=== PATIENT | male | born 1975 | race Caucasian/White ===

== ENCOUNTER 2017-06-29 17:43 | Emergency (ER) | payer OTHER ==
[2017-06-29] MEDS ORDERED: Adacel Vial IM ONE ×2 (18:24→18:47)
[2017-06-29] MEDS ORDERED: DILAUDID 2 MG INJECTION IV ONE (19:27)
[2017-06-29] MEDS ORDERED: GARAMYCIN INJ ONE (19:37)
[2017-06-29] MEDS ORDERED: DILAUDID 2 MG INJECTION ONE (19:38)
[2017-06-29] MEDS ORDERED: GARAMYCIN INJ IJ ONE (19:44)
--- NOTE | 2017-06-29 19:45 | ERPHSYRPT ---
- History of Present Illness Time Seen by Provider: 06/29/17 19:10 Source: patient Exam Limitations: no limitations Patient Subjective Stated Complaint: sharpening knife and cut right index finger Triage Nursing Assessment: pt alert and orietnedx3, gait steady ambualtes by self, has a 5 cm laceration to right index finger, has feeling in finger and is able to move lower half of finger. cap refill immediate, radial pulse present, no other injuries noted Physician History: 42 y/o male comes to the ER after slicing his right index finger with a knife while cutting deer. In the ER, patient reports having increasing pain at the laceration site with numbness up the arm. The patient describes the pain as a 8/ 10, sharp, constant and pt has not taken any pain meds. Pt arrives with a 1 cm laceration in the middle of the ventral side of the right index finger. Bleeding is controlled but there appears to be tendon involvement. Pt is not up to date with her tetanus shot. Occurred: just prior to arrival Method of Injury: other (cut with knife) Quality: constant Severity of Pain-Max: severe Severity of Pain-Current: severe Extremities Pain Location: 2nd finger: right Modifying Factors: Improves With: nothing Associated Symptoms: none Allergies/Adverse Reactions: meperidine HCl [From Demerol] Allergy (Severe, Verified 06/24/13 19:39) morphine Allergy (Severe, Verified 06/24/13 19:39) nalbuphine HCl [From Nubain] Allergy (Severe, Verified 06/24/13 19:39) Hx Tetanus, Diphtheria Vaccination/Date Given: No Hx Influenza Vaccination/Date Given: No Hx Pneumococcal Vaccination/Date Given: No Immunizations Up to Date: No - Review of Systems Constitutional: No Fever, No Chills Eyes: No Symptoms Ears, Nose, & Throat: No Symptoms Respiratory: No Cough, No Dyspnea Cardiac: No Chest Pain, No Edema, No Syncope Abdominal/Gastrointestinal: No Abdominal Pain, No Nausea, No Vomiting, No Diarrhea Genitourinary Symptoms: No Dysuria Musculoskeletal: Joint Pain, Myalgias, No Back Pain, No Neck Pain Skin: No Rash Neurological: Parasthesia, No Dizziness, No Focal Weakness, No Sensory Changes Psychological: No Symptoms Endocrine: No Symptoms All Other Systems: Reviewed and Negative - Past Medical History Pertinent Past Medical History: No Neurological History: No Pertinent History Cardiac History: No Pertinent History Respiratory History: No Pertinent History Psycho-Social History: Anxiety, Depression - Past Surgical History Past Surgical History: Yes Gastrointestinal: Hernia Repair Musculoskeletal: Orthopedic Surgery Other Surgical History: clavical and arm,Noted severe allies to morphine Demerol and nalbuphine for postop surgical analgesia with severe reaction hives swelling etc. - Social History Smoking Status: Light tobacco smoker Exposure to second hand smoke: Yes Drug Use: none Patient Lives Alone: No Significant Family History: diabetes - Nursing Vital Signs Nursing Vital Signs: Initial Vital Signs Temperature 98.5 F 06/29/17 17:44 Pulse Rate 78 06/29/17 17:44 Respiratory Rate 20 06/29/17 17:44 Blood Pressure 139/97 06/29/17 17:44 O2 Sat by Pulse Oximetry 98 06/29/17 17:44 Pain Scale Pain Intensity 5 - Physical Exam General Appearance: alert Eyes, Ears, Nose, Throat Exam: moist mucous membranes Neck Exam: non-tender, supple Cardiovascular/Respiratory Exam: chest non-tender, normal breath sounds, regular rate/rhythm, no respiratory distress Abdominal Exam: non-tender, No guarding Back Exam: normal inspection, No vertebral tenderness Shoulder Exam: normal inspection, non-tender, no evidence of injury Elbow/Forearm Exam: normal inspection, non-tender, no evidence of injury Wrist Exam: normal inspection, non-tender, no evidence of injury Hand Exam: ecchymosis, laceration, swelling Neuro/Tendon Exam: normal sensation, normal motor functions, tendon function deficit (delayed capillary refill of 4 sec), tendon injury visualized, No normal tendon functions Mental Status Exam: alert, oriented x 3, cooperative Skin Exam: normal color, warm, dry SpO2: 97 Oxygen Delivery: Room Air - Course Nursing assessment & vital signs reviewed: Yes Ordered Tests: Active Orders 24 hr Category Date Time Status IV Insertion STAT Care 06/29/17 19:34 Active Medication Summary Discontinued Medications Generic Name Dose Route Start Last Admin Trade Name Freq PRN Reason Stop Dose Admin Diphtheria/Tetanus/Acell Pertussis 0.5 ml 06/29/17 18:24 06/29/17 18:49 Adacel Vial IM 06/29/17 18:25 0.5 ml .ONCE ONE Administration Diphtheria/Tetanus/Acell Pertussis Confirm 06/29/17 18:47 Adacel Vial Administered 06/29/17 18:48 Dose 0.5 ml IM .STK-MED ONE Hydromorphone HCl 1 mg 06/29/17 19:27 Dilaudid 2 Mg Injection IV 06/29/17 19:28 ONCE ONE - Progress Progress: unchanged Progress Note: 06/29/17 19:[address] New, hand surgeon at [facility] who wants the wound irrigated with saline and gentamycin and to be transferred to [facility] to the ER. Pt has been accepted by ER physician, Dr Mart for finger laceration. - Departure Time of Disposition: 19:45 Departure Disposition: Transfer Clinical Impression: Finger laceration involving tendon Qualifiers: Encounter type: initial encounter Qualified Code(s): S61.219A - Laceration without foreign body of unspecified finger without damage to nail, initial encounter; S66.929A - Laceration of unspecified muscle, fascia and tendon at wrist and hand level, unspecified hand, initial encounter; S66.929A - Laceration of unspecified muscle, fascia and tendon at wrist and hand level, unspecified hand, initial encounter Condition: Fair Critical Care Time: Yes Critical Care Time(excluding separately billable procedures): 30-74 minutes Referrals: VEENA BANKS [Primary Care Provider] -
[2017-06-29 20:03] VITALS: BP 130/89; PULSE 72; O2SAT 96
== END 2017-06-29 20:51 | disposition short-term general hospital (02) ==
LOC: ED 17:43
DX: S66.921A Laceration of unspecified muscle, fascia and tendon at wrist and hand level, right hand, initial encounter (principal); W26.0XXA Contact with knife, initial encounter; Y93.9 Activity, unspecified
CPT/HCPCS: 36000; 90471; 90715; 96372; 96374; 99285; J1170; J1580

== ENCOUNTER 2018-06-15 21:38 | Emergency (ER) | payer OTHER ==
[2018-06-15] MEDS ORDERED: DUONEB 0.5-3 MG/3 ml Neb IH ONE ×2 (22:10→22:18)
--- NOTE | 2018-06-15 22:15 | ERPHSYRPT ---
- History of Present Illness Time Seen by Provider: 06/15/18 22:06 Source: patient Exam Limitations: no limitations Patient Subjective Stated Complaint: pt states for the past year he has been having trouble with his breathing. states its worse tonight and he feels like he cant get a deep breath and not able to let it all the way out. states he has pain with deep breath. Triage Nursing Assessment: pt alert and oriented, answers questions pprop. able to speak in complete sentences with no shortness of breath noted. lungs cta. skin pink warm and dry. 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 No nausea no vomiting no cough. Past medical history includes anxiety, depression Past surgical history includes hernia repair, clavicle and arm surgery Social history positive tobacco positive occasional alcohol negative drug use Timing/Duration: other (symptoms off and on for worse for the past 2-3 days) Severity: moderate Modifying Factors: Improves With: nothing Associated Symptoms: shortness of breath, chest pain (chest pain 2 days ago), No nausea, No vomiting, No abdominal pain, No heartburn, No diaphoresis, No cough, No chills, No fever, No headaches, No loss of appetite, No malaise, No rash, No syncope, No seizure, No weakness Allergies/Adverse Reactions: meperidine HCl [From Demerol] Allergy (Severe, Verified 06/15/18 22:02) morphine Allergy (Severe, Verified 06/15/18 22:02) nalbuphine HCl [From Nubain] Allergy (Severe, Verified 06/15/18 22:02) Home Medications: Alprazolam [Xanax] 0.5 mg PO Q6HPRN PRN 06/15/18 [History] Cyclobenzaprine HCl [Flexeril] 5 mg PO Q8H PRN PRN 06/15/18 [History] Hx Tetanus, Diphtheria Vaccination/Date Given: Yes Hx Influenza Vaccination/Date Given: No Hx Pneumococcal Vaccination/Date Given: No Immunizations Up to Date: Yes - Review of Systems Constitutional: No Fever, No Chills Eyes: No Symptoms Ears, Nose, & Throat: No Symptoms Respiratory: Dyspnea Cardiac: Chest Pain (chest pain 2 days ago), No Edema, No Syncope Abdominal/Gastrointestinal: No Abdominal Pain, No Nausea, No Vomiting, No Diarrhea Genitourinary Symptoms: No Dysuria Musculoskeletal: No Back Pain, No Neck Pain Skin: No Rash Neurological: No Dizziness, No Focal Weakness, No Sensory Changes Psychological: No Symptoms Endocrine: No Symptoms All Other Systems: Reviewed and Negative - Past Medical History Pertinent Past Medical History: No Neurological History: No Pertinent History Cardiac History: No Pertinent History Respiratory History: No Pertinent History Psycho-Social History: Anxiety, Depression - Past Surgical History Past Surgical History: Yes Gastrointestinal: Hernia Repair Musculoskeletal: Orthopedic Surgery Other Surgical History: clavical and arm,Noted severe allies to morphine Demerol and nalbuphine for postop surgical analgesia with severe reaction hives swelling etc. - Social History Smoking Status: Current some day smoker How long have you smoked: 5 yrs Exposure to second hand smoke: Yes Drug Use: none Patient Lives Alone: No Significant Family History: diabetes - Nursing Vital Signs Nursing Vital Signs: Initial Vital Signs Temperature 97.8 F 06/15/18 21:50 Pulse Rate 94 H 06/15/18 21:50 Respiratory Rate 18 06/15/18 21:50 Blood Pressure 148/89 06/15/18 21:50 O2 Sat by Pulse Oximetry 94 L 06/15/18 21:50 Pain Scale Pain Intensity 0 - Physical Exam General Appearance: no apparent distress, alert Eye Exam: PERRL/EOMI, eyes nml inspection Ears, Nose, Throat Exam: normal ENT inspection, TMs normal, pharynx normal, moist mucous membranes Neck Exam: normal inspection, non-tender, supple, full range of motion Respiratory Exam: normal breath sounds, lungs clear, No respiratory distress Cardiovascular Exam: regular rate/rhythm, normal heart sounds, normal peripheral pulses, capillary refill <2 sec Gastrointestinal/Abdomen Exam: soft, normal bowel sounds, No tenderness, No mass Back Exam: normal inspection, normal range of motion, No CVA tenderness, No vertebral tenderness Extremity Exam: normal inspection, normal range of motion, pelvis stable Neurologic Exam: alert, oriented x 3, cooperative, 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 Compared to December 28, 2012) - Radiology Exams Chest X-ray Interpretation: Interpreted by me (chest x-ray: No acute disease process noted) Ordered Tests: Active Orders 24 hr Category Date Time Status Can Feeder STAT Care 06/15/18 21:56 Active EKG-ER Only STAT Care 06/15/18 21:56 Active IV Insertion STAT Care 06/15/18 21:57 Active Oxygen-ED Only Nasal Cannula 2 lpm Care 06/15/18 21:57 Active Pulse Oximetry (ED) STAT Care 06/15/18 21:56 Active CHEST 1 VIEW (PORTABLE) Stat Exams 06/15/18 22:11 Taken CBC W DIFF Stat Lab 06/15/18 22:00 Completed CMP Stat Lab 06/15/18 22:00 Completed D-DIMER QUANTITATION Stat Lab 06/15/18 22:00 Completed NT PRO BNP Stat Lab 06/15/18 22:00 Completed TROPONIN Q3H Lab 06/15/18 22:00 Completed TROPONIN Q3H Lab 06/16/18 01:15 Ordered TROPONIN Q3H Lab 06/16/18 04:15 Ordered TROPONIN Q3H Lab 06/16/18 07:15 Ordered TROPONIN Q3H Lab 06/16/18 10:15 Ordered VENOUS BLOOD GAS Stat Lab 06/15/18 22:34 Completed Respiratory MDI STAT RT 06/15/18 23:08 Active Respiratory Therapy Assessment DAILY RT 06/15/18 22:21 Active Medication Summary Generic Name Dose Route Start Last Admin Trade Name Freq PRN Reason Stop Dose Admin Albuterol Sulfate 2 puff 06/15/18 23:07 Proventil Common Canister IH 07/15/18 23:06 Q4-6HPRN PRN shortness of breath, wheezing Discontinued Medications Generic Name Dose Route Start Last Admin Trade Name Freq PRN Reason Stop Dose Admin Albuterol/Ipratropium 3 ml 06/15/18 22:10 06/15/18 22:20 Duoneb 0.5-3 Mg/3 Ml Neb IH 06/15/18 22:11 3 ml STAT ONE Administration Albuterol/Ipratropium Confirm 06/15/18 22:18 Duoneb 0.5-3 Mg/3 Ml Neb Administered 06/15/18 22:19 Dose 3 ml IH .STK-MED ONE Methylprednisolone Sodium Succinate 125 mg 06/15/18 23:06 Solu-Medrol 125 Mg IV 06/15/18 23:07 STAT ONE Lab/Rad Data: Laboratory Result Diagrams 06/15/18 22:00 06/15/18 22:00 Laboratory Results 06/15/18 06/15/18 06/15/18 Range/Units 22:34 22:00 22:00 WBC (4.0-10.5) K/mm3 RBC (4.1-5.6) M/mm3 Hgb (12.5-18.0) gm/dl Hct (42-50) % MCV (78-100) fl MCH (26-32) pg MCHC (32-36) g/dl RDW (11.5-14.0) % Plt Count (150-450) K/mm3 MPV (6-9.5) fl Gran % (36.0-66.0) % Eos # (Auto) (0-0.5) Absolute Lymphs (auto) (1.0-4.6) Absolute Monos (auto) (0.0-1.3) Lymphocytes % (24.0-44.0) % Monocytes % (0.0-12.0) % Eosinophils % (0.00-5.0) % Basophils % (0.0-0.4) % Absolute Granulocytes (1.4-6.9) Basophils # (0-0.4) D-Dimer 311 (215-500) ng/mL pO2/FiO2 Ratio 28.0 % VBG pH 7.41 (7.32-7.42) VBG pCO2 at Pat Temp 43 (42-55) mm/Hg VBG pO2 at Pat Temp 83 H (25-40) mm/Hg VBG HCO3 27.3 (22-28) meq/L VBG O2 Sat (Jenny) 98.2 (95-100) VBG Base Excess 2.2 H (-2.0-2.0) VBG Hemoglobin 15.3 VBG Carboxyhemoglobin 4.1 (0.0-6.9) % T HGB POC Potassium 3.9 (3.5-5.1) Sodium (137-145) mmol/L Potassium (3.5-5.1) mmol/L Chloride (98-107) mmol/L Carbon Dioxide (22-30) mmol/L Anion Gap (5-15) MEQ/L BUN (9-20) mg/dL Creatinine (0.66-1.25) mg/dL Estimated GFR ML/MIN Glucose (74-106) mg/dL Calcium (8.4-10.2) mg/dL Total Bilirubin (0.2-1.3) mg/dL AST (17-59) U/L ALT (0-50) U/L Alkaline Phosphatase (38-126) U/L Troponin I < 0.012 (0.000-0.034) ng/mL NT-Pro-B Natriuret Pep (0-450) pg/mL Serum Total Protein (6.3-8.2) g/dL Albumin (3.5-5.0) g/dL 06/15/18 06/15/18 Range/Units 22:00 22:00 WBC 16.6 H (4.0-10.5) K/mm3 RBC 4.70 (4.1-5.6) M/mm3 Hgb 14.3 (12.5-18.0) gm/dl Hct 43.5 (42-50) % MCV 92.6 (78-100) fl MCH 30.4 (26-32) pg MCHC 32.9 (32-36) g/dl RDW 13.4 (11.5-14.0) % Plt Count 275 (150-450) K/mm3 MPV 10.3 H (6-9.5) fl Gran % 65.5 (36.0-66.0) % Eos # (Auto) 0.34 (0-0.5) Absolute Lymphs (auto) 3.38 (1.0-4.6) Absolute Monos (auto) 1.99 H (0.0-1.3) Lymphocytes % 20.3 L (24.0-44.0) % Monocytes % 12.0 (0.0-12.0) % Eosinophils % 2.0 (0.00-5.0) % Basophils % 0.2 (0.0-0.4) % Absolute Granulocytes 10.88 H (1.4-6.9) Basophils # 0.04 (0-0.4) D-Dimer (215-500) ng/mL pO2/FiO2 Ratio % VBG pH (7.32-7.42) VBG pCO2 at Pat Temp (42-55) mm/Hg VBG pO2 at Pat Temp (25-40) mm/Hg VBG HCO3 (22-28) meq/L VBG O2 Sat (Jenny) (95-100) VBG Base Excess (-2.0-2.0) VBG Hemoglobin VBG Carboxyhemoglobin (0.0-6.9) % T HGB POC Potassium (3.5-5.1) Sodium 138 (137-145) mmol/L Potassium 4.4 (3.5-5.1) mmol/L Chloride 103 (98-107) mmol/L Carbon Dioxide 26 (22-30) mmol/L Anion Gap 13.3 (5-15) MEQ/L BUN 24 H (9-20) mg/dL Creatinine 1.02 (0.66-1.25) mg/dL Estimated GFR > 60.0 ML/MIN Glucose 101 (74-106) mg/dL Calcium 9.7 (8.4-10.2) mg/dL Total Bilirubin 0.60 (0.2-1.3) mg/dL AST 24 (17-59) U/L ALT 24 (0-50) U/L Alkaline Phosphatase 65 (38-126) U/L Troponin I (0.000-0.034) ng/mL NT-Pro-B Natriuret Pep < 11.1 (0-450) pg/mL Serum Total Protein 7.1 (6.3-8.2) g/dL Albumin 4.3 (3.5-5.0) g/dL - Progress Progress: improved Progress Note: 06/15/18 23:09 Patient feeling much better after DuoNeb treatment. Will go ahead and give patient Solu-Medrol 125 mg IV, Zithromax 500 mg orally. And have respiratory give patient an albuterol inhaler (pharmacy is closed) We'll plan home with tapering dose of prednisone. Continued use of albuterol inhaler. And Zithromax 250 mg a day for 4 days. Patient advised to wear respiratory mask when around dust such as concrete dust. Also to quit smoking. He is to follow-up with his family doctor. - Departure Time of Disposition: 23:11 Departure Disposition: Home Clinical Impression: Shortness of breath, Bronchitis with bronchospasm Condition: Fair Critical Care Time: No Instructions: Shortness of Breath (Dyspnea) (DC) Additional Instructions: Return home. Albuterol 2 puffs every 4-6 hours as needed for shortness of breath or wheezing. Zithromax as prescribed. Tapering dose of prednisone as prescribed. Wear respiratory mask when around concrete dust. Stop smoking. Follow-up with your family doctor. Return for acute distress or for severe symptoms. Prescriptions: Azithromycin 250 mg [Zithromax 250 MG TABLET] 250 mg PO DAILY #4 tablet
[2018-06-15 22:34] LABS: BASOPHIL % 0.2 % (0.0-0.4); Basophil (Absolute #) 0.04 (0-0.4); Eosinophil (Absolute #) 0.34 (0-0.5); Granulocyte Absolute (ANC) 10.88 (1.4-6.9); Granulocytes % 65.5 % (36.0-66.0); Hematocrit 43.5 % (42-50); Hemoglobin 14.3 gm/dl (12.5-18.0); Lymphocyte (Absolute #) 3.38 (1.0-4.6); Lymphocytes % 20.3 % (24.0-44.0); Mean Cell Volume 92.6 fl (78-100); Mean Corpuscular Hemoglobin 30.4 pg (26-32); Mean Corpuscular Hgb Concent. 32.9 g/dl (32-36); Mean Platelet Volume 10.3 fl (6-9.5); Monocyte (Absolute #) 1.99 (0.0-1.3); Platelet Count 275 K/mm3 (150-450); Red Cell Distribution Width 13.4 % (11.5-14.0); White Blood Count 16.6 K/mm3 (4.0-10.5)
[2018-06-15 22:35] VITALS: PULSE 77
[2018-06-15 22:39] LABS: VBG BASE EXCESS 2.2 (-2.0-2.0); VBG CARBOXYHEMOGLOBIN 4.1 % T HGB (0.0-6.9); VBG HCO3- 27.3 meq/L (22-28); VBG HEMOGLOBIN 15.3; VBG O2 SATURATION 98.2 (95-100); VBG POTASSIUM 3.9 (3.5-5.1); VBG pH 7.41 (7.32-7.42)
[2018-06-15 22:56] LABS: ALBUMIN 4.3 g/dL (3.5-5.0); ALKALINE PHOSPHATASE 65 U/L (38-126); ANION GAP 13.3 MEQ/L (5-15); BLOOD UREA NITROGEN 24 mg/dL (9-20); CHLORIDE 103 mmol/L (98-107); Calcium 9.7 mg/dL (8.4-10.2); Carbon Dioxide 26 mmol/L (22-30); Creatinine 1 1.02 mg/dL (0.66-1.25); Glucose 101 mg/dL (74-106); NT PRO BNP < 11.1 pg/mL (0-450); Potassium 4.4 mmol/L (3.5-5.1); SGOT/AST 24 U/L (17-59); SGPT/ALT 24 U/L (0-50); SODIUM 138 mmol/L (137-145); Total Protein 7.1 g/dL (6.3-8.2)
[2018-06-15] MEDS ORDERED: solu-MEDROL 125 MG IV ONE (23:06)
[2018-06-15] MEDS ORDERED: PROVENTIL COMMON CANISTER IH PRN (23:07)
[2018-06-15] MEDS ORDERED: Zithromax 250 MG TABLET PO ONE (23:08)
[2018-06-15] MEDS ORDERED: Zithromax 250 MG TABLET ONE (23:15)
[2018-06-15] MEDS ORDERED: solu-MEDROL 125 MG ONE (23:15)
[2018-06-15 23:18] VITALS: BP 142/98; O2SAT 97
[2018-06-15] MEDS ORDERED: Ventolin Hfa MDI IH ONE (23:28)
[2018-06-15 23:32] LABS: Slide Review 1 YES
--- NOTE | 2018-06-16 08:30 | XRAY ---
Indication: Short of breath. Comparison: November 23, 2009. Portable chest again demonstrates normal heart, lungs, and bony thorax with a few incidental calcified granulomas.
== END 2018-06-15 23:41 | disposition home or self-care (01) ==
LOC: ED 21:38
DX: R06.02 Shortness of breath (principal); J40 Bronchitis, not specified as acute or chronic; J98.01 Acute bronchospasm; F41.8 Other specified anxiety disorders
CPT/HCPCS: 36000; 36415; 71045; 80053; 82805; 83880; 84484; 85025; 85379; 93005; 93041; 94640; 96374; 99284; J2930; A9270-GY

== ENCOUNTER 2019-04-02 20:55 | Emergency (ER) | payer OTHER ==
[2019-04-02] MEDS ORDERED: PROTONIX 40 MG IV IV ONE ×2 (21:05→21:17)
[2019-04-02] MEDS ORDERED: Sodium Chloride 0.9% 1000 ML 1,000 ML IV STA (21:05)
[2019-04-02] MEDS ORDERED: Pepcid 20 MG VIAL IV ONE ×2 (21:05→21:17)
[2019-04-02] MEDS ORDERED: Hydromorphone 1 mg/ml Ampule IV ONE ×2 (21:05→22:44)
[2019-04-02] MEDS ORDERED: Zofran 4 MG/2 ML VIAL IV ONE (21:05)
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
[2019-04-02] MEDS ORDERED: Hydromorphone 1 mg/ml Ampule ONE ×2 (21:17→22:50)
[2019-04-02] MEDS ORDERED: Zofran 4 MG/2 ML VIAL ONE (21:17)
[2019-04-02] MEDS ORDERED: Sodium Chloride 0.9% 1000 ML 1,000 ML ONE (21:17)
[2019-04-02 21:25] LABS: Absolute Neutrophil Ct (ANC) 5.64 (1.4-6.9); BASOPHIL % 0.4 % (0.0-0.4); Basophil (Absolute #) 0.04 (0-0.4); Eosinophil % 2.7 % (0.00-5.0); Hematocrit 44.3 % (42-50); Hemoglobin 14.4 gm/dl (12.5-18.0); Lymphocyte (Absolute #) 3.78 (1.0-4.6); Lymphocytes % 34.1 % (24.0-44.0); Mean Cell Volume 94.1 fl (78-100); Mean Corpuscular Hemoglobin 30.6 pg (26-32); Mean Corpuscular Hgb Concent. 32.5 g/dl (32-36); Mean Platelet Volume 9.9 fl (6-9.5); Monocyte (Absolute #) 1.31 (0.0-1.3); Monocytes % 11.8 % (0.0-12.0); Platelet Count 287 K/mm3 (150-450); Red Blood Count 4.71 M/mm3 (4.1-5.6); Red Cell Distribution Width 14.2 % (11.5-14.0); White Blood Count 11.1 K/mm3 (4.0-10.5)
[2019-04-02 21:35] LABS: ALBUMIN 4.4 g/dL (3.5-5.0); ALKALINE PHOSPHATASE 67 U/L (38-126); AMYLASE 102 U/L (30-110); ANION GAP 12.1 MEQ/L (5-15); BLOOD UREA NITROGEN 14 mg/dL (9-20); CHLORIDE 107 mmol/L (98-107); Calcium 9.8 mg/dL (8.4-10.2); Carbon Dioxide 25 mmol/L (22-30); Glucose 101 mg/dL (74-106); LIPASE 120 U/L (23-300); Potassium 4.3 mmol/L (3.5-5.1); SGOT/AST 28 U/L (17-59); SGPT/ALT 25 U/L (0-50); SODIUM 140 mmol/L (137-145); Total Protein 7.8 g/dL (6.3-8.2)
[2019-04-02 22:12] LABS: Appearance CLEAR (CLEAR); Bilirubin NEGATIVE (NEGATIVE); Blood NEGATIVE Ery/ul (0-5); Glucose NEGATIVE (NEGATIVE); Ketones NEGATIVE (NEGATIVE); Leukocyte Esterase NEGATIVE (NEGATIVE); Nitrite NEGATIVE (NEGATIVE); Protein,Urine Dip NEGATIVE (Negative); Specific Gravity 1.018 (1.005-1.025); Urobilinogen NEGATIVE mg/dL (0-1)
[2019-04-03] MEDS ORDERED: TORAdol 30 mg Injection IV ONE (01:02)
[2019-04-03] MEDS ORDERED: Zanaflex 4 MG PO ONE (01:03)
[2019-04-03] MEDS ORDERED: TORAdol 30 mg Injection ONE (01:07)
[2019-04-03] MEDS ORDERED: Hydromorphone 1 mg/ml Ampule IV ONE (02:47)
[2019-04-03 03:02] VITALS: BP 138/90
[2019-04-03] MEDS ORDERED: Hydromorphone 1 mg/ml Ampule ONE (03:22)
[2019-04-03] MEDS ORDERED: Zofran 4 MG/2 ML VIAL IV ONE (03:23)
[2019-04-03] MEDS ORDERED: Zofran 4 MG/2 ML VIAL ONE (03:28)
[2019-04-03 04:03] VITALS: PULSE 68; O2SAT 98
--- NOTE | 2019-04-03 08:45 | XRAY ---
Indication: Left upper quadrant pain 1 month. Multiple contiguous axial images obtained through the abdomen and pelvis without contrast as ordered. Comparison: None Lung bases demonstrates minimal bibasilar dependent atelectasis and tiny left lower lobe calcified granuloma. No infiltrate or effusion. Heart is not enlarged. Noncontrasted stomach and bowel loops appear nonobstructed. There has been bilateral inguinal hernia repair with appendix in a small right inguinal hernia. Minimal scattered colonic diverticulosis without diverticulitis. No free fluid/air. Remaining liver, gallbladder, pancreas, spleen, adrenal glands, kidneys, ureters, bladder, and aorta appear unremarkable for noncontrast exam. Osseous structures intact with mild degenerative changes throughout the spine. Impression: 1. Normal colonic diverticulosis without diverticulitis. 2. Appendix and small right inguinal hernia without complications. 2. Remaining CT abdomen/pelvis without contrast exam is negative. Comment: Preliminary interpretation was made by [facility]. No critical discrepancy. CTDI 7.65
--- NOTE | 2019-04-03 08:47 | XRAY ---
Indication: Left chest tenderness. Comparison: June 15, 2018. PA/lateral chest again demonstrates normal heart, lungs, and bony thorax with a few incidental calcified granulomas.
== END 2019-04-03 04:03 | disposition home or self-care (01) ==
LOC: ED 20:55
DX: R07.89 Other chest pain (principal); K40.90 Unilateral inguinal hernia, without obstruction or gangrene, not specified as recurrent; R10.12 Left upper quadrant pain; R10.13 Epigastric pain; R11.2 Nausea with vomiting, unspecified; Z79.899 Other long term (current) drug therapy
CPT/HCPCS: 36000; 36415; 71046; 74176; 80053; 81001; 82150; 83605; 83690; 84484; 85025; 93005; 96374; 96375; 96376; 99285; J1170; J1885; J2405; A9270-GY

== ENCOUNTER 2019-11-22 09:43 | Day surgery (SDC) | payer OTHER ==
--- NOTE | 2019-11-19 08:34 | HP ---
DATE OF SURGERY: 11/22/2019 HISTORY OF PRESENT ILLNESS: The patient is a 44 year old with bulge in inguinal area, prior history of left inguinal hernia. I think he may have had three times on that side. At this point he desires right inguinal hernia repair. PAST MEDICAL HISTORY: Includes chronic obstructive pulmonary disease, sleep apnea. PAST SURGICAL HISTORY: Two shoulder surgeries on the left. Right hand surgery. Left inguinal hernia surgery x3 in the past. MEDICATIONS: Lisinopril, diazepam, famotidine, magnesium, Nexium, Trelegy, nebulizer solution, prednisone. ALLERGIES: DEMEROL. MORPHINE. NUBAIN. FAMILY HISTORY: Heart disease, colon cancer, lung cancer. SOCIAL HISTORY: Occasional smokes one or two cigarettes, occasional alcohol use one or two beers a week. REVIEW OF SYSTEMS: Fourteen systems reviewed. Negative or noncontributory as above and per preadmission questionnaire. Pertinent for chronic medical conditions. No chest pain or palpitations currently. PHYSICAL EXAMINATION: GENERAL: No acute distress. HEENT: Sclerae nonicteric. Moist mucous membranes. NECK: No JVD. CHEST: Decreased breath sounds consistent with chronic obstructive pulmonary disease. CVS: Regular rate and rhythm. ABDOMEN: Soft. No peritoneal signs. He does have right inguinal hernia on exam. EXTREMITIES: No significant edema. NEURO: Alert, oriented, moving extremities symmetrically. No gross motor deficits noted. PSYCH: Appropriate mood and affect. RECTAL: Deferred timed to endoscopy exam. IMPRESSION: Right inguinal pain and bulge worse with straining. Exam consistent with right inguinal hernia. I feel the patient will benefit from repair. He was shown the risk sheet and explained the procedure in detail but not limited to bleeding or infection, risk of ingrown hair or suture reaction, risk of mesh infection possibly requiring removal, risk of swelling or firmness on the incision, risk of hematoma or seroma formation, risk of black and blue bruising, risk of urinary retention possibly requiring temporary catheter. General risk of aches, pains, burning, numbness lower abdomen, groin, thigh or scrotal area possible termite treater or chronic 10 to 12%, possible risk of interfering with sexual function from the aches and pain standpoint. Overall risk of hernia recurrence. General risk of cardiopulmonary event given his comorbidities but not limited to. He understands and agrees to the planned procedure as well as real risk of recurrence given his steroid use and chronic lung disease. Will proceed with open repair. We had a long discussion of options. I feel the patient would benefit from open repair of right inguinal hernia with mesh. Risks and benefits explained in detail but not limited to as noted above and consent was obtained as well as general risk of anesthesia, DVT, risk of cardiopulmonary event. Will proceed as an outpatient.
[~2019-11-22 09:43] MED LIST: Lactated Ringers 1,000 ML IV ONE; Sensorcaine 0.25% 10 ML ONE
[2019-11-22] MEDS ORDERED: Versed 2 MG/2 ML Injection IV ONE (10:27)
[2019-11-22] MEDS ORDERED: Versed 2 MG/2 ML Injection ONE (10:28)
[2019-11-22] MEDS ORDERED: Decadron 4 MG INJ ONE (10:30)
[2019-11-22] MEDS ORDERED: Zofran 4 MG/2 ML VIAL ONE (10:30)
[2019-11-22] MEDS ORDERED: SUBLIMAZE 100 MCG/2 ML ONE ×4 (10:30→14:33)
[2019-11-22] MEDS ORDERED: Lactated Ringers 1,000 ML IV SCH (10:30)
[2019-11-22] MEDS ORDERED: CEFAZOLIN 2 GM-D5W BAG** 2 GM/50 ML ML IV SCH (10:30)
[2019-11-22] MEDS ORDERED: DIPRIVAN 200 MG/20 ML IV ONE (10:30)
[2019-11-22] MEDS ORDERED: Xylocaine-Mpf 2% 5 Ml Vial ONE (10:30)
[2019-11-22] MEDS ORDERED: TORAdol 30 mg Injection ONE ×3 (10:30→13:39)
[2019-11-22] MEDS ORDERED: Ketamine HCl 50 MG/ML ONE (14:03)
[2019-11-22] MEDS ORDERED: SUBLIMAZE 100 MCG/2 ML IV PRN (14:22)
[2019-11-22] MEDS ORDERED: NORCO 5/325 MG PO PRN (14:23)
[2019-11-22] MEDS ORDERED: Zofran 4 MG/2 ML VIAL IV PRN (14:24)
[2019-11-22 15:10] VITALS: BP 147/85; PULSE 62; O2SAT 98
--- NOTE | 2019-11-23 08:28 | OP ---
SURGERY DATE/TIME: 11/22/2019 1159 PREOPERATIVE DIAGNOSIS: Right inguinal hernia. POSTOPERATIVE DIAGNOSIS: Right inguinal hernia. PROCEDURE: Open repair right inguinal hernia repair with mesh. SURGEON: Dr. Andrew Goss. GLOBAL ACCOUNT EXECUTIVE: Zulma Son, Medical Student III. ANESTHESIA: General. ESTIMATED BLOOD LOSS: Minimal. INDICATIONS: As noted above. Risks and benefits explained in detail and not limited to and consent obtained. The site was confirmed and marked with the patient in the preoperative holding area. DESCRIPTION OF PROCEDURE AND FINDINGS: He is taken to the operating room. General anesthesia was induced. Groin area prepped and draped in usual sterile fashion. After official time out and no disagreement with planned procedure, a transverse incision made right inguinal area. Dissection carried down through Valentin fascia through the external oblique in the direction of its fibers towards the external ring. The cord was gently mobilized up off with [place] drain elevating it upwards. Cremasteric fibers carefully . It was one very miniscule perineal sac. It was definitely perineal sac this was carefully isolated on the cord structures ligated and passed off. The main indirect hernia sac had the appendix falling down in it. It had some sliding components and adhesions in this. This was carefully opened and appendiceal attachments carefully freed and reduced back down in the abdomen. It was then high ligated with 0 Prolene. The sac transected and passed off. There did not appear to be any separate cord lipoma. He did have a large amount of fat in the cord and it should be noted that he had quite generous cord veins and not quite to the point of calling it varicocele. The cord veins were somewhat slightly enlarged. It was felt that if they should progress and enlarge further and causing issues he would need to follow up with urology down the road but at this time it was felt they should not be resected. At this point the patient's direct hernia component was imbricated downwards running 0 PDS. It was felt closing the direct hernia in tension free manner the ilioinguinal-iliohypogastric visible nerve fibers were carefully protected. It was felt the patient would benefit from mesh placement. A 2 x 4 piece of mesh cut to the appropriate dimensions with a keyhole cut secured to the fascia overlying pubic tubercles with 0 Prolene run along the Jose Luis's ligament along the shelving portion of the inguinal ligament with 0 Prolene. 0 Prolene used to transfix the rectus fascia medially and 0 Vicryl used to transfix the aponeurosis internal oblique superiorly. 0 Prolene used to transfix the tails together out lateral to the internal ring with 0 Prolene. The new internal ring was felt to be not too tight. The mesh is nice and flat in a tension free manner. Irrigation accomplished. Good hemostasis noted. The external oblique is closed with 0 Vicryl. Valentin closed with 3-0 Vicryl. Skin closed with 4-0 Vicryl. Steri-Strips and sterile dressing applied. 0.25% Marcaine local had been injected along the skin incision back towards the origin of the inguinal area back towards the anterior iliac spine. The patient tolerated the procedure well. There were no immediate complications. Findings were discussed with the family out in the waiting area. He had mildly weak tissue. It was felt that he is at moderate risk for recurrence down the road but this is the best repair possible at this juncture.
== END 2019-11-22 15:25 | disposition home or self-care (01) ==
LOC: SDC 09:43
PROVIDERS: ATTEND Surgery
DX: K40.90 Unilateral inguinal hernia, without obstruction or gangrene, not specified as recurrent (principal); J44.9 Chronic obstructive pulmonary disease, unspecified; Z79.899 Other long term (current) drug therapy
CPT/HCPCS: C1781; J0690; J1100; J1885; J2250; J2405; J2704; J3010

== ENCOUNTER 2019-12-05 11:37 | Inpatient (IN) | payer OTHER ==
[2019-12-05] MEDS ORDERED: Sodium Chloride 0.9% 1000 ML 1,000 ML IV STA (12:04)
[2019-12-05] MEDS ORDERED: Sodium Chloride 0.9% 1000 ML 1,000 ML ONE (12:12)
[2019-12-05] MEDS ORDERED: Ativan 2 MG/1 ML VIAL IV ONE (12:37)
[2019-12-05] MEDS ORDERED: Ativan 2 MG/1 ML VIAL ONE (12:39)
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
[2019-12-05 12:58] LABS: Hematocrit 53.7 % (42-50); Hemoglobin 17.8 gm/dl (12.5-18.0); Mean Cell Volume 93.7 fl (78-100); Mean Corpuscular Hemoglobin 31.1 pg (26-32); Mean Corpuscular Hgb Concent. 33.1 g/dl (32-36); Mean Platelet Volume 10.6 fl (7.5-11.0); Platelet Count 332 K/mm3 (150-450); Red Blood Count 5.73 M/mm3 (4.1-5.6); Red Cell Distribution Width 14.3 % (11.5-14.0)
[2019-12-05 13:12] LABS: White Blood Count 29.6 K/mm3 (4.0-10.5)
[2019-12-05] MEDS ORDERED: Zithromax 500 MG/ 250 ML NaCl Premix 500 MG/250 ML IVPB IV STA ×2 (13:12→15:02)
[2019-12-05] MEDS ORDERED: ROCEPHIN 1 Gm-D5w 50 ml Bag** 1 G/50 ML IVPB IV STA (13:12)
[2019-12-05 13:25] LABS: ALBUMIN 5.1 g/dL (3.5-5.0); ALKALINE PHOSPHATASE 86 U/L (38-126); AMYLASE 86 U/L (30-110); ANION GAP 15.2 MEQ/L (5-15); BLOOD UREA NITROGEN 18 mg/dL (9-20); CHLORIDE 102 mmol/L (98-107); Calcium 10.6 mg/dL (8.4-10.2); Carbon Dioxide 24 mmol/L (22-30); Creatinine 1 1.04 mg/dL (0.66-1.25); Glucose 117 mg/dL (74-106); LIPASE 53 U/L (23-300); SGOT/AST 32 U/L (17-59); SGPT/ALT 25 U/L (0-50); SODIUM 137 mmol/L (137-145)
[2019-12-05 13:28] LABS: Potassium 4.8 mmol/L (3.5-5.1)
[2019-12-05] MEDS ORDERED: ROCEPHIN 1 Gm-D5w 50 ml Bag** 1 G/50 ML IVPB IV ONE (13:33)
[2019-12-05 13:39] LABS: INFLUENZA A NEGATIVE (NEGATIVE); INFLUENZA B NEGATIVE (NEGATIVE); RESPIRATORY SYNCTIAL VIRUS NEGATIVE (Negative)
[2019-12-05 13:50] LABS: BAND 22 % (0.0-2.0); Eosinophil 1 % (0.00-3.0); Lymphocytes 7 % (24-44); Monocyte 3 % (0.0-12.0); Neutrophils 67 % (36.-66.); Platelet Estimate NORMAL (NORMAL); Total Cells Counted 100; Toxic Granulation 1+
[2019-12-05] MEDS ORDERED: Zofran 4 MG/2 ML VIAL IV PRN (14:52)
[2019-12-05] MEDS: ENOXAPARIN SODIUM SQ SCH ×2 (15:28→17:04)
[2019-12-05] MEDS: ADVAIR 250-50 DISKUS 14 DOSE IH SCH ×2 (17:01→20:28)
[2019-12-05] MEDS: VENTOLIN COMMON CANISTER IH SCH ×2 (17:02→20:28)
[2019-12-05] MEDS: Sodium Chloride 0.9% 1000 ML 1,000 ML IV SCH ×2 (17:05→22:21)
[2019-12-05] MEDS: Ativan 2 MG/1 ML VIAL IV PRN ×2 (17:06→21:09)
[2019-12-05] MEDS ORDERED: Valium 5 MG PO PRN (17:37)
[2019-12-05] MEDS ORDERED: ULTRAM 50 MG PO PRN (17:39)
[2019-12-05] MEDS ORDERED: Zestril 5 MG ONE (17:45)
[2019-12-05] MEDS: Zestril 5 MG PO SCH (17:51)
[2019-12-05] MEDS ORDERED: Advair Hfa 115/21 Common canister IH SCH (19:00)
--- NOTE | 2019-12-05 20:11 | XRAY ---
Indication: Chest pain. Suspect Covid 19. Comparison: April 03, 2019. Portable chest less inflated and remains clear. Heart is not enlarged. Bony thorax intact again with mild degenerative changes. Impression: Nonacute chest.
[2019-12-05] MEDS: TYLENOL 325 MG PO PRN (20:24)
[2019-12-05 20:53] LABS: Appearance CLEAR (CLEAR); Bilirubin NEGATIVE (NEGATIVE); Blood NEGATIVE Ery/ul (0-5); Glucose NEGATIVE (NEGATIVE); Ketones NEGATIVE (NEGATIVE); Leukocyte Esterase NEGATIVE (NEGATIVE); Mucus SLIGHT /HPF (NEGATIVE); Nitrite NEGATIVE (NEGATIVE); Protein,Urine Dip NEGATIVE (Negative); Specific Gravity 1.017 (1.005-1.025); Urobilinogen NEGATIVE mg/dL (0-1)
[2019-12-05] MEDS ORDERED: Pepcid 20 MG VIAL IV SCH (22:00)
[2019-12-06] MEDS: VENTOLIN COMMON CANISTER IH SCH ×4 (00:04→19:42)
[2019-12-06] MEDS: Ativan 2 MG/1 ML VIAL IV PRN (01:18)
[2019-12-06] MEDS ORDERED: Sodium Chloride 0.9% 1000 ML 1,000 ML IV SCH (02:30)
[2019-12-06 05:00] LABS: Hematocrit 44.2 % (42-50); Hemoglobin 14.3 gm/dl (12.5-18.0); Mean Cell Volume 95.1 fl (78-100); Mean Corpuscular Hemoglobin 30.8 pg (26-32); Mean Corpuscular Hgb Concent. 32.4 g/dl (32-36); Mean Platelet Volume 9.6 fl (7.5-11.0); Platelet Count 249 K/mm3 (150-450); Red Blood Count 4.65 M/mm3 (4.1-5.6); Red Cell Distribution Width 14.2 % (11.5-14.0); White Blood Count 15.9 K/mm3 (4.0-10.5)
[2019-12-06 05:21] LABS: ALBUMIN 3.6 g/dL (3.5-5.0); ALKALINE PHOSPHATASE 57 U/L (38-126); ANION GAP 10.9 MEQ/L (5-15); BLOOD UREA NITROGEN 9 mg/dL (9-20); CHLORIDE 104 mmol/L (98-107); Carbon Dioxide 22 mmol/L (22-30); Creatinine 1 0.85 mg/dL (0.66-1.25); Glucose 128 mg/dL (74-106); SGOT/AST 21 U/L (17-59); SGPT/ALT 16 U/L (0-50); SODIUM 133 mmol/L (137-145); Total Protein 6.5 g/dL (6.3-8.2)
[2019-12-06 05:48] LABS: Calcium 8.8 mg/dL (8.4-10.2); Potassium 3.7 mmol/L (3.5-5.1)
[2019-12-06] MEDS: ADVAIR 250-50 DISKUS 14 DOSE IH SCH ×2 (07:13→19:40)
[2019-12-06] MEDS ORDERED: NON-FORMULARY ITEM (Diazepam [Valium] 10 MG) PO SCH (07:45)
--- NOTE | 2019-12-06 08:45 | XRAY ---
Indication: Chest pain. Comparison: One day earlier. Portable apical lordotic chest unchanged again clear with a few incidental tiny calcified granulomas. Heart is not enlarged. No new/acute findings.
[2019-12-06] MEDS: Pepcid 20 MG PO SCH (09:13)
[2019-12-06] MEDS: Zestril 5 MG PO SCH (09:13)
[2019-12-06] MEDS: ZOLOFT 50 MG TABLET PO SCH (09:13)
[2019-12-06] MEDS: Protonix 40MG Tablet PO SCH (09:21)
[2019-12-06] MEDS: Valium 5 MG PO PRN ×2 (09:56→23:03)
[2019-12-06] MEDS ORDERED: NON-FORMULARY ITEM (Esomeprazole Magnesium [Nexium] 20 MG) PO SCH (10:00)
[2019-12-06] MEDS ORDERED: NON-FORMULARY ITEM (Sertraline Hcl [Zoloft] 100 MG) PO SCH (10:00)
[2019-12-06] MEDS ORDERED: NON-FORMULARY ITEM (Famotidine [Pepcid] 40 MG) PO SCH (10:00)
[2019-12-06 10:16] LABS: BAND 2 % (0.0-2.0); Lymphocytes 7 % (24-44); Monocyte 2 % (0.0-12.0); Neutrophils 89 % (36.-66.); Platelet Estimate NORMAL (NORMAL); Total Cells Counted 100; Toxic Granulation 1+
[2019-12-06] MEDS ORDERED: ROCEPHIN 1 Gm-D5w 50 ml Bag** 1 G/50 ML IVPB IV SCH (14:00)
[2019-12-06 14:25] LABS: Adenovirus F 40/41 NEGATIVE (NEGATIVE); Astrovirus NEGATIVE (NEGATIVE); C. Difficile Organism NEGATIVE (NEGATIVE); Campylobacter NEGATIVE (NEGATIVE); Cryptosporidium NEGATIVE (NEGATIVE); Cyclospora cayentanensis NEGATIVE (NEGATIVE); Entamoeaba histolytica NEGATIVE (NEGATIVE); Enteroaggregative E.coli NEGATIVE (NEGATIVE); Enteropathogenic E.coli POSITIVE (NEGATIVE); Enterotoxigenic E.coli NEGATIVE (NEGATIVE); Giardia lamblia NEGATIVE (NEGATIVE); Norovirus GI/GII NEGATIVE (NEGATIVE); Plesiomonas shigelloides NEGATIVE (NEGATIVE); Rotavirus A NEGATIVE (NEGATIVE); Salmonella NEGATIVE (NEGATIVE); Sapovirus NEGATIVE (NEGATIVE); Shiga-like toxin prod.E.coli NEGATIVE (NEGATIVE); Vibrio NEGATIVE (NEGATIVE); Vibrio cholerae NEGATIVE (NEGATIVE); Yersinia enterocolitica NEGATIVE (NEGATIVE)
[2019-12-06] MEDS ORDERED: Zithromax 500 MG/ 250 ML NaCl Premix 500 MG/250 ML IVPB IV SCH (15:00)
[2019-12-06] MEDS: ENOXAPARIN SODIUM SQ SCH (15:32)
[2019-12-06] MEDS: Cipro 500 MG PO SCH ×2 (15:37→17:55)
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
[2019-12-06] MEDS: TYLENOL 325 MG PO PRN (20:16)
[2019-12-06] MEDS ORDERED: Tums EX 750 MG PO PRN (23:28)
[2019-12-07] MEDS: VENTOLIN COMMON CANISTER IH SCH ×3 (02:31→12:41)
[2019-12-07] MEDS: ADVAIR 250-50 DISKUS 14 DOSE IH SCH (07:25)
[2019-12-07] MEDS: ZOLOFT 50 MG TABLET PO SCH (10:05)
[2019-12-07] MEDS: Pepcid 20 MG PO SCH (10:05)
[2019-12-07] MEDS: Protonix 40MG Tablet PO SCH (10:05)
[2019-12-07] MEDS: Zestril 5 MG PO SCH (10:05)
[2019-12-07] MEDS: Cipro 500 MG PO SCH (10:05)
[2019-12-07 10:35] VITALS: O2SAT 96
[2019-12-07 11:43] LABS: Absolute Neutrophil Ct (ANC) 7.13 (1.4-6.9); BASOPHIL % 0.3 % (0.0-0.4); Basophil (Absolute #) 0.03 (0-0.4); Eosinophil % 0.4 % (0.00-5.0); Eosinophil (Absolute #) 0.04 (0-0.5); Hematocrit 46.1 % (42-50); Hemoglobin 14.9 gm/dl (12.5-18.0); Lymphocyte (Absolute #) 1.84 (1.0-4.6); Lymphocytes % 17.2 % (24.0-44.0); Mean Cell Volume 95.1 fl (78-100); Mean Corpuscular Hemoglobin 30.7 pg (26-32); Mean Corpuscular Hgb Concent. 32.3 g/dl (32-36); Monocyte (Absolute #) 1.64 (0.0-1.3); Monocytes % 15.4 % (0.0-12.0); Neutrophil % 66.7 % (36.0-66.0); Platelet Count 261 K/mm3 (150-450); Red Blood Count 4.85 M/mm3 (4.1-5.6); Red Cell Distribution Width 14.4 % (11.5-14.0); White Blood Count 10.7 K/mm3 (4.0-10.5)
[2019-12-07 12:10] VITALS: BP 122/74
--- NOTE | 2019-12-07 12:34 | PCM.DS ---
Discharge Summary Date of Admission: 12/05/19 14:15 Admitting Physician: TEE BARGER Primary Care Provider: VEENA BANKS Allergies Allergies meperidine HCl [From Demerol] Allergy (Severe, Verified 12/05/19 13:11) Tightness of Throat morphine Allergy (Severe, Verified 12/05/19 13:11) Tightness of Throat nalbuphine HCl [From Nubain] Allergy (Severe, Verified 12/05/19 13:11) Tightness of Throat Hospital Summary - Hospital Course Hospital Course: Chief Complaint Diagnosis c/o nausea and vomting, dirrhea for 2 days Allergies Allergy/AdvReac Type Severity Reaction Status Date / Time meperidine HCl [From Demerol] Allergy Severe Tightness Verified 12/05/19 13:11 of Throat morphine Allergy Severe Tightness Verified 12/05/19 13:11 of Throat nalbuphine HCl [From Nubain] Allergy Severe Tightness Verified 12/05/19 13:11 of Throat Vital Signs (Last 24 hours) Temp Pulse Resp BP Pulse Ox 12/07/19 12:00 98.7 F 75 14 122/74 12/07/19 11:00 12 12/07/19 10:00 98.4 F 87 14 128/72 96 12/07/19 09:00 16 12/07/19 08:00 98.3 F 76 12 126/74 94 L 12/07/19 07:25 78 20 96 12/07/19 05:45 87 17 95 12/07/19 04:00 98.9 F 76 20 141/92 95 12/07/19 01:56 82 19 93 L 12/06/19 23:45 97.9 F 75 20 141/95 97 12/06/19 21:56 87 17 93 L 12/06/19 20:10 72 16 96 12/06/19 20:00 98.9 F 76 20 147/94 96 12/06/19 19:00 14 12/06/19 18:00 71 13 98 12/06/19 17:58 13 12/06/19 17:00 20 12/06/19 16:00 98.4 F 76 12 145/98 95 12/06/19 15:00 11 L 12/06/19 14:00 65 19 96 12/06/19 13:08 89 16 96 12/06/19 13:00 19 Home Medications Medication Instructions Recorded Confirmed Last Taken Type Fluticasone/Umeclidin/Vilanter 1 puff IH BID 12/05/19 12/05/19 12/05/19 History [Trelegy Ellipta 100-62.5-25] Sertraline HCl [Zoloft] 100 mg PO DAILY 12/05/19 12/05/19 12/04/19 08:00 History Tramadol HCl 50 mg [Ultram 50 1 tab PO Q6H PRN PRN 12/05/19 12/05/19 12/04/19 20:00 History mg] Current Medications Generic Name Dose Route Start Last Admin Trade Name Freq PRN Reason Stop Dose Admin Acetaminophen 650 mg 12/05/19 14:52 12/06/19 20:16 Tylenol 325 Mg PO 01/04/20 14:51 650 mg Q4H PRN PRN Administration PAIN AND/OR FEVER Albuterol Sulfate 4 puff 12/05/19 19:00 12/07/19 07:25 Ventolin Common Canister IH 01/04/20 18:59 4 puff Q6HRT VITO Administration Calcium Carbonate/Glycine 750 mg 12/06/19 23:28 12/06/19 23:36 Tums Ex 750 Mg PO 01/05/20 23:27 750 mg Q4H PRN PRN Administration INDIGESTION Ciprofloxacin 500 mg 12/06/19 15:10 12/07/19 10:05 Cipro 500 Mg PO 01/05/20 15:09 500 mg BID VITO Administration Diazepam 10 mg 12/06/19 07:37 12/06/19 23:03 Valium 5 Mg PO 01/05/20 07:36 10 mg BID PRN PRN Administration Enoxaparin Sodium 40 mg 12/07/19 15:00 Enoxaparin Sodium SQ 01/06/20 14:59 Q24H VITO Famotidine 40 mg 12/06/19 10:00 12/07/19 10:05 Pepcid 20 Mg PO 01/05/20 09:59 40 mg DAILY VITO Administration Sodium Chloride 1,000 mls @ 30 mls/hr 12/06/19 02:30 12/07/19 10:06 Sodium Chloride 0.9% 1000 Ml IV 01/05/20 02:29 30 mls/hr .Q24H VITO Administration Lisinopril 2.5 mg 12/06/19 10:00 12/07/19 10:05 Zestril 5 Mg PO 01/05/20 09:59 2.5 mg DAILY VITO Administration Lorazepam 0.5 mg 12/05/19 14:52 12/06/19 01:18 Ativan 2 Mg/1 Ml Vial IV 01/04/20 14:51 0.5 mg Q4H PRN PRN Administration ANXIETY Ondansetron HCl 4 mg 12/05/19 14:52 12/05/19 15:30 Zofran 4 Mg/2 Ml Vial IV 01/04/20 14:51 4 mg Q6H PRN PRN Administration NAUSEA/VOMITING Pantoprazole Sodium 40 mg 12/06/19 10:00 12/07/19 10:05 Protonix 40mg Tablet PO 01/05/20 09:59 40 mg DAILY VITO Administration Fluticasone/Salmeterol 1 each 12/05/19 19:00 12/07/19 07:25 Advair 250-50 Diskus 14 Dose IH 01/04/20 18:59 1 each BIDRT VITO Administration Sertraline HCl 100 mg 12/06/19 10:00 12/07/19 10:05 Zoloft 50 Mg Tablet PO 01/05/20 09:59 100 mg DAILY VITO Administration Tramadol HCl 50 mg 12/05/19 17:39 12/06/19 09:12 Ultram 50 Mg PO 01/04/20 17:38 50 mg Q6H PRN PRN Administration PAIN Discontinued Medications Generic Name Dose Route Start Last Admin Trade Name Freq PRN Reason Stop Dose Admin Diazepam 10 mg 12/05/19 17:37 Valium 5 Mg PO 01/04/20 17:36 BID PRN PRN ANXIETY Enoxaparin Sodium 40 mg 12/05/19 15:00 12/06/19 15:32 Enoxaparin Sodium SQ 01/04/20 14:59 Not Given Q24H VITO Sodium Chloride 1,000 mls @ 999 mls/hr 12/05/19 12:04 12/05/19 14:16 Sodium Chloride 0.9% 1000 Ml IV 12/05/19 13:04 Infused .Q1H1M STA Infusion Sodium Chloride Confirm 12/05/19 12:12 Sodium Chloride 0.9% 1000 Ml Administered 12/05/19 12:13 Dose 1,000 mls @ ud .ROUTE .STK-MED ONE Ceftriaxone Sodium/Dextrose 1 g in 50 mls @ 100 mls/hr 12/05/19 13:12 12/05/19 14:16 Rocephin 1 Gm-D5w 50 Ml Bag IV 12/05/19 13:41 Infused STAT STA Infusion Azithromycin 500 mg in 250 mls @ 250 mls/hr 12/05/19 13:12 Zithromax 500 Mg/ 250 Ml Nacl Premix IV 12/05/19 14:11 STAT STA Ceftriaxone Sodium/Dextrose Confirm 12/05/19 13:33 Rocephin 1 Gm-D5w 50 Ml Bag Administered 12/05/19 13:34 Dose 1 g in 50 mls @ ud IV .STK-MED ONE Sodium Chloride 1,000 mls @ 250 mls/hr 12/05/19 14:52 12/05/19 22:24 Sodium Chloride 0.9% 1000 Ml IV 01/04/20 14:51 250 mls/hr .Q4H VITO Infusion Azithromycin 500 mg in 250 mls @ 250 mls/hr 12/05/19 15:02 12/05/19 15:28 Zithromax 500 Mg/ 250 Ml Nacl Premix IV 12/05/19 16:01 250 mls/hr STAT STA Administration Ceftriaxone Sodium/Dextrose 1 g in 50 mls @ 100 mls/hr 12/06/19 14:00 12/06/19 14:30 Rocephin 1 Gm-D5w 50 Ml Bag IV 01/05/20 13:59 100 mls/hr Q24H10 VITO Administration Azithromycin 500 mg in 250 mls @ 250 mls/hr 12/06/19 15:00 Zithromax 500 Mg/ 250 Ml Nacl Premix IV 01/05/20 14:59 Q24H10 VITO Lisinopril Confirm 12/05/19 17:45 Zestril 5 Mg Administered 12/05/19 17:46 Dose 5 mg .ROUTE .STK-MED ONE Lorazepam 2 mg 12/05/19 12:37 12/05/19 12:41 Ativan 2 Mg/1 Ml Vial IV 12/05/19 12:38 2 mg STAT ONE Administration Lorazepam Confirm 12/05/19 12:39 Ativan 2 Mg/1 Ml Vial Administered 12/05/19 12:40 Dose 2 mg .ROUTE .STK-MED ONE Intake & Output (Last 24 hours) 12/05/19 12/06/19 12/07/19 12/08/19 11:59 11:59 11:59 11:59 Intake Total 3506 434 Output Total 1950 250 Balance 1556 184 Weight 95.254 kg 91 kg 91 kg Microbiology Results (Last 24 hours) 12/05/19 12:50 Blood Blood Culture Gram Stain - Pending 12/05/19 12:50 Blood Blood Culture - Preliminary NO GROWTH TO DATE 12/05/19 12:45 Blood Blood Culture Gram Stain - Pending 12/05/19 12:45 Blood Blood Culture - Preliminary NO GROWTH TO DATE 12/05/19 Unknown Clean Catch Midstream Urine Culture - Final NO GROWTH Laboratory Results (Last 24 hours) 12/06/19 10:00 Stl C. cayetanensis PCR NEGATIVE Stl Adenov F 40/41 PCR NEGATIVE Stool Astrovirus (PCR) NEGATIVE Stool Cryptosporidium PCR NEGATIVE Stool EPEC (PCR) POSITIVE A Stool EAEC (PCR) NEGATIVE Stl E. histolytica PCR NEGATIVE Stl P. shigelloides PCR NEGATIVE Stool Sapovirus (PCR) NEGATIVE St Y.enterocolitica PCR NEGATIVE Stool Vibrio (PCR) NEGATIVE Stl Vibrio cholerae PCR NEGATIVE Stl Norovirus GI/GII PCR NEGATIVE Campylobacter (PCR) NEGATIVE C. difficile (PCR) NEGATIVE Enterotoxigenic E. coli NEGATIVE E.coli Shiga Toxins NEGATIVE Giardia lamblia NEGATIVE Rotavirus A (PCR) NEGATIVE Salmonella (PCR) NEGATIVE Shigella (PCR) NEGATIVE Orders (Last 24 hours) Category Date Time Status House Regular Diet Diet 12/06/19 Dinner Active CBC W DIFF Stat Lab 12/07/19 11:30 Received Azithromycin 500 mg/250 ml [Zithromax 500 MG/ 250 ML Med 12/06/19 15:00 Discontinued NaCl Premix] 500 mg in 250 ml IV Q24H10 Calcium Carbonate 750 mg [Tums EX 750 MG] Med 12/06/19 23:28 Active 750 mg PO Q4H PRN PRN Ceftriaxone 1 GM/50 ML PREMIX* [ROCEPHIN 1 Gm-D5w 50 ml Med 12/06/19 14:00 Discontinued Bag] 1 g in 50 ml IV Q24H10 Ciprofloxacin [Cipro 500 MG] Med 12/06/19 15:10 Active 500 mg PO BID Enoxaparin Sodium [Enoxaparin Sodium] Med 12/07/19 15:00 Active 40 mg SQ Q24H Patient Care Notes (Last 24 hours) 12/07/19 00:00 (created 12/07/19 00:58) Nursing Note by Star Fitzpatrick Pt states indigestion has improved after taking tums. Initialized on 12/07/19 00:58 - END OF NOTE 12/06/19 23:39 Nursing Note by Star Fitzpatrick Pt c/o chest tightness. BP 141/95, HR 75, R 20, O2 97% on RA, Temp 97.9. Telemetry shows NSR. States he has a hiatal hernia and it feels like an indigestion pain and takes nexium for it at home. Protonix given this morning. Gave pt Tums. See emar. Will continue to monitor. Initialized on 12/06/19 23:39 - END OF NOTE - Vitals & Intake/Output Vital Signs: Vital Signs Temperature 98.7 F 12/07/19 12:00 Pulse Rate 75 12/07/19 12:00 Respiratory Rate 14 12/07/19 12:00 Blood Pressure 122/74 12/07/19 12:00 O2 Sat by Pulse Oximetry 96 12/07/19 10:00 Intake & Output: Intake & Output 12/05/19 12/06/19 12/07/19 12/08/19 11:59 11:59 11:59 11:59 Intake Total 3506 434 Output Total 1950 250 Balance 1556 184 Weight 95.254 kg 91 kg 91 kg - Lab Result Diagrams: 12/06/19 04:47 12/06/19 04:47 Lab Results-Last 24 Hrs: Lab Results-Last 24 Hours 12/06/19 Range/Units 10:00 Stl C. cayetanensis PCR NEGATIVE (NEGATIVE) Stl Adenov F 40/41 PCR NEGATIVE (NEGATIVE) Stool Astrovirus (PCR) NEGATIVE (NEGATIVE) Stool Cryptosporidium PCR NEGATIVE (NEGATIVE) Stool EPEC (PCR) POSITIVE A (NEGATIVE) Stool EAEC (PCR) NEGATIVE (NEGATIVE) Stl E. histolytica PCR NEGATIVE (NEGATIVE) Stl P. shigelloides PCR NEGATIVE (NEGATIVE) Stool Sapovirus (PCR) NEGATIVE (NEGATIVE) St Y.enterocolitica PCR NEGATIVE (NEGATIVE) Stool Vibrio (PCR) NEGATIVE (NEGATIVE) Stl Vibrio cholerae PCR NEGATIVE (NEGATIVE) Stl Norovirus GI/GII PCR NEGATIVE (NEGATIVE) Campylobacter (PCR) NEGATIVE (NEGATIVE) C. difficile (PCR) NEGATIVE (NEGATIVE) Enterotoxigenic E. coli NEGATIVE (NEGATIVE) E.coli Shiga Toxins NEGATIVE (NEGATIVE) Giardia lamblia NEGATIVE (NEGATIVE) Rotavirus A (PCR) NEGATIVE (NEGATIVE) Salmonella (PCR) NEGATIVE (NEGATIVE) Shigella (PCR) NEGATIVE (NEGATIVE) Micro Results-Entire Visit: Microbiology 12/05/19 12:50 Blood Culture - Preliminary Blood NO GROWTH TO DATE 12/05/19 12:45 Blood Culture - Preliminary Blood NO GROWTH TO DATE 12/05/19 Unknown Urine Culture - Final Clean Catch Midstream NO GROWTH - Radiology Exams Ordered Rad Exams-Entire Visit: Radiology Procedures Category Date Time Status CHEST 1 VIEW (PORTABLE) Routine Exams 12/06/19 07:00 Completed CHEST 1 VIEW (PORTABLE) Stat Exams 12/05/19 14:11 Completed - Procedures and Test Procedures and Tests throughout Hospitalization: Therapy Orders & Screens 12/05/19 14:42 Oxygen Nasal Cannula 2 lpm Comment: 12/05/19 15:02 Respiratory MDI BID Comment: 12/05/19 15:07 Oxygen Nasal Cannula 2 lpm Comment: Respiratory Therapy Assessment DAILY Comment: 12/05/19 16:29 Smoking Cessation Education ONCE Comment: Diagnosis: N/V, diarrhea, Co-vid 19 Smoking Status: Current some day smoker How long have you smoked: 5 yrs Have you smoked in the past 12 months: Yes Approximately how many cigarettes per day: 2 Do you dip or chew tobacco: No If,Former Smoker,when did you quit: 2 years ago 12/06/19 00:00 BiPap/CPAP ROUTINE Comment: Diagnosis: N/V, diarrhea, Co-vid 19 Discharge Exam General Appearance: no apparent distress, alert Neurologic Exam: alert, oriented x 3, cooperative, normal mood/affect, nml cerebellar function, sensation nml, No motor deficits Eye Exam: PERRL, EOMI, eyes nml inspection Ears, Nose, Throat Exam: normal ENT inspection, pharynx normal, moist mucous membranes Neck Exam: normal inspection, non-tender, supple, full range of motion Respiratory Exam: normal breath sounds, lungs clear, No respiratory distress Cardiovascular Exam: regular rate/rhythm, normal heart sounds Gastrointestinal/Abdomen Exam: soft, No tenderness, No mass Male Genitalia Exam: deferred Rectal Exam: deferred Back Exam: normal inspection, normal range of motion, No CVA tenderness, No vertebral tenderness Extremity Exam: normal inspection, normal range of motion Skin Exam: normal color, warm, dry Final Diagnosis/Problem List - Final Discharge Diagnosis/Problem (1) COVID-19 determined by clinical diagnostic criteria Current Visit: Yes Status: Acute Priority: High Assessment & Plan: negative for SARS covid 19 PCR, positive exposure, will still follow all protocols after discharge Code(s): U07.1 - COVID-19 (2) Abdominal pain Current Visit: Yes Status: Resolved Code(s): R10.9 - UNSPECIFIED ABDOMINAL PAIN (3) Diarrhea Current Visit: Yes Status: Resolved Code(s): R19.7 - DIARRHEA, UNSPECIFIED (4) Colitis Current Visit: Yes Status: Acute Assessment & Plan: will send him home with cipro 500 mg po bid for 7 days Code(s): K52.9 - NONINFECTIVE GASTROENTERITIS AND COLITIS, UNSPECIFIED - Discharge Discharge Date: 12/07/19 Disposition: Home, Self-Care Condition: Stable Prescriptions: New Ciprofloxacin [Cipro 500 MG] 500 mg PO BID #15 tablet No Action Esomeprazole Magnesium [Nexium] 20 mg PO DAILY Famotidine [Pepcid] 40 mg PO DAILY lisinopriL [Zestril] 2.5 mg PO DAILY Diazepam [Valium] 10 mg PO BID PRN Tramadol HCl 50 mg [Ultram 50 mg] 1 tab PO Q6H PRN PRN PRN Reason: Pain Fluticasone/Umeclidin/Vilanter [Trelegy Ellipta 100-62.5-25] 1 puff IH BID Sertraline HCl [Zoloft] 100 mg PO DAILY Instructions: Coronavirus Disease 2019 (COVID-19) (DC), Coronavirus Disease 2019 (COVID-19) Follow up with: VEENA BANKS [Primary Care Provider] - 1 Week
[2019-12-07 12:43] VITALS: PULSE 72
[2019-12-07] MEDS ORDERED: ENOXAPARIN SODIUM SQ SCH (15:00)
== END 2019-12-07 13:18 | disposition home or self-care (01) | DRG 179 ==
LOC: ED 11:37 → MED SURG 14:15
PROVIDERS: ADMIT Family Medicine; ATTEND Family Medicine
DX: U07.1 COVID-19 (principal); R11.2 Nausea with vomiting, unspecified; R10.9 Unspecified abdominal pain; K52.9 Noninfective gastroenteritis and colitis, unspecified; I10 Essential (primary) hypertension; J44.9 Chronic obstructive pulmonary disease, unspecified; Z79.899 Other long term (current) drug therapy
CPT/HCPCS: 36000; 36415; 71045; 80053; 81001; 82150; 83605; 83690; 85025; 87040; 87045; 87046; 87086; 87335; 87507; 87631; 94640; 94660; 94762; 96360; 96365; 96374; 99285; 99291; J0456; J0696; J1650; J2060; J2405; U0003; A9270-GY

== ENCOUNTER 2021-05-07 06:06 | Day surgery (SDC) | payer OTHER ==
[2021-05-07] MEDS ORDERED: Lactated Ringers 1,000 ML IV SCH (07:00)
[2021-05-07] MEDS ORDERED: Xylocaine-Mpf 2% 5 Ml Vial ONE (07:17)
[2021-05-07] MEDS ORDERED: DIPRIVAN 200 MG/20 ML IV ONE ×2 (07:17→08:16)
[2021-05-07] MEDS ORDERED: SUBLIMAZE 100 MCG/2 ML ONE (07:17)
[2021-05-07 09:27] VITALS: BP 138/100; PULSE 60; O2SAT 97
--- NOTE | 2021-05-07 14:22 | OP ---
SURGERY DATE/TIME: 05/07/2021 0755 PREOPERATIVE DIAGNOSIS: Dysphagia and rectal bleeding. POSTOPERATIVE DIAGNOSES: 1) Moderate antral gastritis. 2) Normal colon. PROCEDURES: 1) Esophagogastroduodenoscopy with cold forceps biopsy of the gastric antrum. 2) Colonoscopy. SURGEON: Dr. Cherry. ANESTHESIA: Medications were given by the anesthesia department. HISTORY: The patient is a 46-year-old white male patient who reports that he has been having rectal bleeding for some time off and on, bright red in nature. He is also complaining of some dysphagia. The patient was felt the need to have endoscopic evaluation. He was appraised of the risks of the procedure including the risk of perforation, phlebitis, untoward reaction to medication, bleeding and missed lesions. The patient verbalized his understanding and desired to have the procedure performed. DESCRIPTION OF PROCEDURE: The patient was given the medications by the anesthesia department. He had continuous pulse oximetry, ECG monitoring and intermittent blood pressure monitoring during the examination. He was placed in the left lateral decubitus position. A bite block was placed and the flexible Olympus gastroscope was used to intubate the oropharynx. A view of the larynx was normal. The scope was introduced in the esophagus, which appeared to be essentially normal throughout its length. The stomach was entered where normal gastric rugal folds were seen. It was somewhat difficult to get the patient insufflated well enough to see the cardia region of the stomach and there appeared to be areas of erosion and slight bleeding noted in the body of the stomach. The scope was passed along the greater curvature of the stomach to the antrum. The pylorus encountered and intubated. The duodenum inspected and found to be essentially normal. The scope is withdrawn towards the stomach. Again, biopsies obtained from the antrum to rule out the presence of Helicobacter pylori-type organism and confirm the presence of gastritis. The scope was then removed from the patient. Next, a digital rectal examination was performed and revealed normal anal sphincter tone and no masses and normal prostate. The flexible Olympus pediatric colonoscope was used to intubate the rectum. A view of the colon was developed sequentially to the cecum. Upon insertion and withdrawal, including a retroflex view in the rectum, no mucosal lesions were encountered. The scope was removed from the patient who tolerated the procedure well and was sent back to OP recovery in good condition. The prep was noted to be fair to good.
== END 2021-05-07 09:25 | disposition home or self-care (01) ==
LOC: SDC 06:06
PROVIDERS: ATTEND Family Medicine
DX: K29.70 Gastritis, unspecified, without bleeding (principal); R13.10 Dysphagia, unspecified; K62.5 Hemorrhage of anus and rectum
CPT/HCPCS: J2704; J3010

== ENCOUNTER 2022-08-26 19:18 | Emergency (ER) | payer OTHER ==
[2022-08-26] MEDS ORDERED: Vibramycin 100 MG PO ONE (20:03)
[2022-08-26] MEDS ORDERED: Vibramycin 100 MG ONE (20:13)
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
[2022-08-26 20:28] VITALS: BP 111/72; PULSE 88; O2SAT 95
== END 2022-08-26 20:28 | disposition home or self-care (01) ==
LOC: ED 19:18
DX: L73.9 Follicular disorder, unspecified (principal); I10 Essential (primary) hypertension; Z79.899 Other long term (current) drug therapy; Z28.310 Unvaccinated for COVID-19; Z72.0 Tobacco use
CPT/HCPCS: 99281; A9270-GY